=== PATIENT | male | born 1995 | race Caucasian/White ===

== ENCOUNTER → 2020-12-12 | Outpatient (CLI) | payer BC ==
[2020-12-13 01:02] LABS: Erythrocyte Sedimentation Rate 6 mm/Hr (0-15)
[2020-12-13 01:05] LABS: HCT 47.7 % (39.6-50.0); HGB 16.1 g/dL (13.0-17.0); MCH 31.4 pg (27.0-32.0); MCHC 33.8 g/dL (32.0-37.0); Mean Platelet Volume 9.6 fL (9.5-12.2); Platelet Count 282 X 10*3/uL (140-440); RBC 5.13 X 10*6/uL (4.40-5.60); RDW 12.3 % (11.5-14.5); WBC 8.26 X 10*3/uL (4.50-10.00)
== END | disposition home or self-care (01) ==
LOC: LABWHC1 14:39
PROVIDERS: ATTEND Physician Assistant
DX: S46.211A Strain of muscle, fascia and tendon of other parts of biceps, right arm, initial encounter (principal); M25.511 Pain in right shoulder; M79.621 Pain in right upper arm; R22.31 Localized swelling, mass and lump, right upper limb; X58.XXXA Exposure to other specified factors, initial encounter
CPT/HCPCS: 36415; 83520; 85027; 85652; 86140